=== PATIENT | male | born 1945 | race Caucasian/White ===

== ENCOUNTER → 2019-09-26 | Outpatient (CLI) | payer OTHER ==
[~2019-09-26] MED LIST: ASPIRIN EC81 M1 PO; AZELAST NASAL137 MCG NASAL; B-100 COMPLEX1 EAC1 PO; CELEXA 10 MG TA10 M1 PO; CO Q-10200 MG PO; DIAZEPAM 5 MG5 M1 PO; FISHOIL PO; LISINOPRIL10 MG PO; MULTIVITAMINS PO; TESTIM5 GM TOP; VITAMINC500 PO
== END ==
LOC: RAD 15:55
DX: R06.09 Other forms of dyspnea (principal)

== ENCOUNTER → 2019-10-10 | Outpatient (CLI) | payer OTHER ==
--- NOTE | 2019-10-10 15:17 | 2DMMODE ---
[facility] [employer] [place] [address] 2 D/M-MODE ECHOCARDIOGRAM Name: DEBORAHDANIA Oviedo Room #: REG [facility]#: [id number] Admission: 10/10/19 Attend Phys: Paulo Camarillo MD Discharge: Date of : 43 Report #: [id number] THIS REPORT FOR: //name// APPROVED REPORT Study performed: 10/10/2019 12:41:34 EXAM: Comprehensive 2D, Doppler, and color-flow Echocardiogram Patient Location: Out-Patient Status: routine BSA: 2.06 HR: 59 bpm BP: 126/70 mmHg Rhythm: Bradycardia Other Information Study Quality: Good Indications Shortness of breath, hypertension, pulmonary hypertension. 2D Dimensions RVDd: 37.41 mm IVSd: 10.12 (7-11mm) LVOT Diam: 20.32 (18-24mm) LVDd: 42.28 mm PWd: 9.80 (7-11mm) Ascending Ao: 33.12 (22-36mm) LVDs: 26.54 (25-40mm) Aortic Root: 36.09 mm Volumes Left Atrial Volume (Systole) Single Plane 4CH: 24.69 mL Single Plane 2CH: 33.38 mL LA ESV Index: 17.00 mL/m2 Aortic Valve AoV Peak Randy.: 1.22 m/s AO Peak Gr.: 5.92 mmHg LVOT Max P.52 mmHg LVOT Max V: 1.06 m/s RENTETA Vmax: 2.83 cm2 Mitral Valve E/A Ratio: 1.8 MV Decel. Time: 182.42 ms MV E Max Randy.: 0.84 m/s [facility] [address] [place] [address] 2 D/M-MODE ECHOCARDIOGRAM Name: CABRERADANIA Oviedo Room #: REG [facility]#: [id number] Admission: 10/10/19 Attend Phys: Paulo Camarillo MD Discharge: Date of : 43 Report #: [id number] MV A Randy.: 0.48 m/s MV PHT: 52.90 ms IVRT: 62.28 ms Pulmonary Valve PV Peak Randy.: 0.90 m/s PV Peak Gr.: 3.27 mmHg Pulmonary Vein P Vein S: 0.68 m/s P Vein A: 0.33 m/s P Vein D: 0.59 m/s P Vein A Dur.: 90.0 msec P Vein S/D Ratio: 1.15 Tricuspid Valve TR Peak Randy.: 2.27 m/s RAP Estimate: 5.00 mmHg TR Peak Gr.: 20.55 mmHg PA Pressure: 25.00 mmHg Left Ventricle The left ventricle is normal size. There is normal LV segmental wall motion. There is normal left ventricular wall thickness. The left ventricular systolic function is normal. LVEF is 55-60%. Moderate diastolic dysfunction is present (pseudonormal filling). Right Ventricle The right ventricle is normal size. The right ventricular systolic function is normal. Atria The left atrium size is normal. Right atrium is at the upper limits of normal. Aortic Valve The aortic valve is normal in structure. No aortic regurgitation is present. There is no aortic valvular stenosis. Mitral Valve The mitral valve is normal in structure. Mild mitral regurgitation. No evidence of mitral valve stenosis. Tricuspid Valve The tricuspid valve is normal in structure. Mild tricuspid regurgitation. Estimated PAP is 25mmHg. Pulmonic Valve The pulmonary valve is normal in structure. Mild pulmonic regurgitation. [facility] [address] [place] [address] 2 D/M-MODE ECHOCARDIOGRAM Name: DANIA CABRERA Room #: REG [facility]#: [id number] Admission: 10/10/19 Attend Phys: Paulo Camarillo MD Discharge: Date of : 43 Report #: [id number] Great Vessels The aortic root is normal in size. The ascending aorta is normal in size. IVC is normal in size and collapses >50% with inspiration. Pericardium There is no pericardial effusion. <Conclusion> The left ventricle is normal size. There is normal left ventricular wall thickness. The left ventricular systolic function is normal. The right ventricle is normal size. The left atrium size is normal. The aortic valve is normal in structure. Mild mitral regurgitation. Mild tricuspid regurgitation. Estimated PAP is 25mmHg. <ELECTRONICALLY SIGNED> By: Paulo Camarillo MD 10/10/191515 15 15 Paulo Camarillo MD /INF
== END ==
LOC: CV 12:35
DX: I08.8 Other rheumatic multiple valve diseases (principal); I10 Essential (primary) hypertension

== ENCOUNTER → 2019-10-11 | Outpatient (CLI) | payer OTHER | LOC: NUC 10-10 12:29 | DX: R06.09 Other forms of dyspnea (principal); R68.89 Other general symptoms and signs; R42 Dizziness and giddiness; Z87.891 Personal history of nicotine dependence ==

== ENCOUNTER → 2020-11-05 | Outpatient (CLI) | payer OTHER ==
--- NOTE | 2020-11-07 17:29 | SLE ---
[facility] [place] [address] POLYSOMNOGRAPHY STUDY Name: DANIA CABRERA Room #: REG [facility]#: [id number] Admission: 11/05/20 Attend Phys: Ricco Oliver MD Discharge: Date of : 43 Report #: [id number] THIS REPORT FOR: cc: Lennox Solano MD, Rene P. MD Khan, Aman U. MD ~ DATE OF SERVICE: 11/05/2020 HOME SLEEP STUDY ATTENDING PHYSICIAN: Dr. Ricco Oliver. The patient is a 75-year-old who weighs 187 pounds with a BMI of 26.8. The patient's Dallas score was 4. The patient had recently nasal turbinate reduction surgery. Home sleep study was performed to rule out any significant ARNEL. Total recording time was 512 minutes. During the night study, the patient had no central or mixed apneas. There were 14 obstructive apneas and 28 hypopneas. The patient's AHI was 5 per hour with a supine AHI of 8.4 per hour. Nocturnal oximetry study revealed an average oxygen saturation of 93% with the lowest of 87%. 8.5 minutes were spent with oxygen saturation of less than 90%. Mean heart rate was 59.6 beats per minute with a maximum of 87 beats per minute. IMPRESSION: 1. Mild obstructive sleep apnea. The patient's AHI was only 5 per hour. 2. Mild nocturnal hypoxia secondary to obstructive sleep apnea. RECOMMENDATIONS: 1. The patient has only mild sleep apnea. The patient is status post nasal turbinate reduction surgery. At this point, I would recommend further weight loss as a treatment option for patient's mild sleep apnea. 2. If the patient has comorbid conditions or is clinically symptomatic, then consider treatment with CPAP versus oral appliance. 3. Avoid [employer] depressants. 4. Cautioned regarding driving until symptoms of sleep apnea resolve with the above recommendations. <ELECTRONICALLY SIGNED> By: Tone Yanez MD 11/07/20 [id number] [id number] Tone Yanez MD /nt
== END ==
LOC: SLEEPLAB 15:13
PROVIDERS: ATTEND Pediatrics
DX: G47.33 Obstructive sleep apnea (adult) (pediatric) (principal); R09.02 Hypoxemia

== ENCOUNTER → 2021-10-28 | Outpatient (CLI) | payer OTHER | LOC: CAT 15:47 | PROVIDERS: ATTEND Internal Medicine Cardiovascular Disease | DX: Z13.6 Encounter for screening for cardiovascular disorders (principal) ==

== ENCOUNTER → 2021-10-28 | Outpatient (CLI) | payer OTHER | LOC: SJCVC 13:31 → SJCVCIMAG 13:31 | PROVIDERS: ATTEND Internal Medicine Cardiovascular Disease | DX: R94.31 Abnormal electrocardiogram [ECG] [EKG] (principal); I45.2 Bifascicular block; I65.23 Occlusion and stenosis of bilateral carotid arteries; I77.9 Disorder of arteries and arterioles, unspecified; I10 Essential (primary) hypertension; E78.00 Pure hypercholesterolemia, unspecified; G47.33 Obstructive sleep apnea (adult) (pediatric); R06.00 Dyspnea, unspecified; Z87.891 Personal history of nicotine dependence; Z72.89 Other problems related to lifestyle; Z79.82 Long term (current) use of aspirin; Z79.899 Other long term (current) drug therapy ==

== ENCOUNTER → 2021-11-02 | Outpatient (CLI) | payer OTHER | LOC: SJCVCIMAG 09:27 | PROVIDERS: ATTEND Internal Medicine Cardiovascular Disease | DX: I07.1 Rheumatic tricuspid insufficiency (principal); R06.00 Dyspnea, unspecified ==